=== PATIENT | female | born 1945 | race Caucasian/White ===

== ENCOUNTER → 2016-08-14 | Outpatient (CLI) | payer MEDICARE, OTHER ==
--- NOTE | ~2016-08-14 | MY11 ---
[facility] A Service of [facility] RADIOLOGY TEXT RESULTS PATIENT: TANIA JENSEN LOCATION: [facility] : 41 UNIT #: [id number] AGE: [address]: Melanie Garcia MD SEX: F ORDER DR: [id number] [place] [id number] O MR#: [id number] Acc #: [id number] NAME: TANIA JENSEN : 1945 SEX: F STUDY DATE/TIME: 08/14/2016 14:33 UNIT: [facility] ROOM: STUDY DESCRIPTION: MY Mammogram Screening Dig Ac Attending Physician: Melanie Garcia M.D. Referring Physician: Melanie Garcia M.D. Ordering Physician: Melanie Garcia M.D. Primary Care Physician: Melanie Garcia M.D. MEDICAL IMAGING REPORT This report is preliminary unless electronic signature is present. EXAM Digital screening mammogram 08/14/2016. HISTORY 71-year-old woman; no risk elevation. Prior 2 biopsies, left breast. Annual screening. COMPARISON Comparison mammograms date to 12/05/2008, with most recent 07/29/2015. FINDINGS Digital imaging of each breast was completed, utilizing screening protocol. Review includes FDA-approved CAD device. Breast parenchyma is very dense with a combination of fibroglandular opacities and scattered fibronodularity. There is a dominance noted, inferior right breast, with a stable appearance. Calcifications in both breasts have benign characteristics. Image-guided biopsy marker, anterior third, left breast, is present. I see no interval occurring mass and no suspicious microcalcifications. There is no suspicious architectural deformity. IMPRESSION Benign mammogram. Extremely dense breast parenchyma. Annual screening recommended. Patients over the age of 40 are entered into a reminder system with target due date for the next mammogram. A result letter will also be sent to the patient. BIRADS: 2 Benign finding. [facility] A Service of [facility] RADIOLOGY TEXT RESULTS PATIENT: TANIA JENSEN LOCATION: [facility] : 41 UNIT #: [id number] AGE: [address]: Melanie Garcia MD SEX: F ORDER DR: Dictated by... Kvng Olvera M.D. THIS IS AN ELECTRONICALLY VERIFIED REPORT Kvng Olvera M.D. at 08/17/2016 8:16 AM BABATUNDE/bernardo TD: 08/14/2016 17:06 JOB #: [id number] MEDICAL IMAGING REPORT Page 1 of 1
== END | disposition home or self-care (01) ==
LOC: SMAM 13:55
DX: Z12.31 Encounter for screening mammogram for malignant neoplasm of breast (principal)
CPT/HCPCS: G0202